=== PATIENT | female | born 1950 | race Caucasian/White ===

== ENCOUNTER 2017-02-22 21:42 | Emergency (ER) | payer MEDICARE, OTHER ==
[~2017-02-22] VITALS: Ht 160 cm; Wt 85.5 kg
[~2017-02-22 21:42] MED LIST: ASPI-664 PO; BACTDS PO; CEPH-443 PO; DOCU-144 PO; HYDR-3498 PO; IBUP-1542 PO; LOSA50TA6 PO; NIFE90TA PO; NIT3 SL; PANT40TA3 PO
[2017-02-22 22:26] VITALS: Ht 160 cm; Wt 85.5 kg
[2017-02-22] MEDS ORDERED: ONDANSETRON (ODT) 4 MG TAB ODT STA (23:18)
[2017-02-22] MEDS ORDERED: HYDROCODONE/APAP (5/325) TAB PO ONE (23:30)
--- NOTE | 2017-02-22 23:50 | ERD ---
ER Documentation Chief Complaint Date/Time DATE: 02/22/17 TIME: 23:46 Chief Complaint s/p fall, c/o left ankle, right knee, left wrist, and headache HPI This is a 66-year-old female who presents the emergency department today with her [id number] with complaints of pain after slipping and falling at a restaurant. Patient states there was a slippery spot on the floor and she slipped and fell and hurt her ankle, knee, wrist, back. States she also has a headache and is nauseated. States that she did hit her head however she is unsure if she lost consciousness. States she is able to walk with pain. Denies any vomiting. ROS All systems reviewed and are negative except as per history of present illness. Medications Home Meds Active Scripts Naproxen* (Naprosyn*) 500 Mg Tablet, 500 MG PO BID Y for PAIN AND/OR INFLAMMATION, #30 TAB Prov:HOLLY JEWELL PA-C 02/23/17 Ondansetron Hcl* (Zofran*) 4 Mg Tablet, 4 MG PO Q6H for NAUSEA AND/OR VOMITING, #30 TAB Prov:HOLLY JEWELL PA-C 02/23/17 Hydrocodone/Acetaminophen (Alborn 5-325 Tablet) 1 Each Tablet, 1 TAB PO Q6H Y for PAIN, #12 TAB Prov:HOLLY JEWELL PA-C 02/23/17 Hydrocodone Bit-Acetaminophen* (Alborn*) 5-325 Mg Tab, 1 TAB PO Q6 Y for PAIN, # 20 TAB Prov:ALYSSIA HERNANDEZ PA-C 09/15/15 Cephalexin* (Keflex*) 500 Mg Capsule, 500 MG PO QID for 7 Days, CAP Prov:ALYSSIA HERNANDEZ PA-C 09/15/15 Sulfamethoxazole-Trimethoprim* (Bactrim* DS) 800-160 Mg Tab, 1 TAB PO DAILY for 7 Days, TAB Prov:ALYSSIA HERNANDEZ PA-C 09/15/15 Docusate Sodium* (Colace*) 100 Mg Capsule, 100 MG PO BID, #30 Prov:NOLVIA MORALES MD 03/30/15 Hydrocodone Bit-Acetaminophen* (Alborn*) 5-325 Mg Tab, 1 TAB PO Q6 Y for PAIN, # 16 TAB Prov:NOLVIA MORALES MD 03/30/15 Ibuprofen* (Motrin*) 600 Mg Tab, 600 MG PO Q6, #30 TAB Prov:NOLVIA MORALES MD 03/30/15 Pantoprazole* (Protonix*) 40 Mg Tablet., 40 MG PO DAILY for 30 Days, TAB Prov:ARABELLA SUGGS. 12/21/14 Aspirin* (Aspirin* EC) 81 Mg Tablet., 81 MG PO DAILY for 30 Days, TAB Prov:KASEY SUGGSNata M. 12/21/14 Reported Medications Losartan Potassium* (Losartan Potassium*) 50 Mg Tablet, 50 MG PO BID, TAB 12/21/14 Nifedipine* (Procardia XL*) 90 Mg/Bottle Tab.osm.24, 90 MG PO DAILY, TAB.SA 12/21/14 Nitroglycerin* (Nitroglycerin* SL) 0.3 Mg Tab.subl, 0.3 MG SL Q5MIN Y for CHEST PAIN, BOTTLE 12/21/14 Allergies Allergies: Coded Allergies: No Known Allergy (Verified , 03/30/15) PMhx/Soc History of Surgery: No Anesthesia Reaction: No Hx Neurological Disorder: No Hx Respiratory Disorders: No Hx Cardiac Disorders: Yes (HTN) Hx Psychiatric Problems: No Hx Miscellaneous Medical Probl: Yes (HLD) Hx Alcohol Use: No Hx Substance Use: No Hx Tobacco Use: No Smoking Status: Never smoker Physical Exam Vitals Vital Signs Date Time Temp Pulse Resp B/P Pulse Ox O2 Delivery O2 Flow Rate FiO2 02/22/17 22:26 98.1 75 20 163/99 98 Physical Exam Const: No acute distress Head: Atraumatic Eyes: Normal Conjunctiva. PERRLA. EOM intact ENT: Normal External Ears, Nose and Mouth. No epistaxis. No hemotympanum Neck: Full range of motion..~ No meningismus. Nontender to palpation Resp: Clear to auscultation bilaterally Cardio: Regular rate and rhythm, no murmurs Abd: Soft, non tender, non distended. Normal bowel sounds Skin: No petechiae or rashes Back: Lumbar spine midline tenderness and right-sided paraspinal tenderness. Ext: Left ankle, left wrist, right knee with no obvious deformity. Small amount of ecchymosis right knee. Pain with full active range of motion of knee and ankle and wrist. Pulses 2+. Distal neurovascularly intact. Neur: Awake and alert. No focal neurologic deficits. Psych: Normal Mood and Affect Results 24 hrs Current Medications Medications (Trade) Dose Ordered Sig/Kaia Route PRN Reason Start Time Stop Time Status Last Admin Dose Admin Ondansetron HCl (Zofran Odt) 4 mg ONCE STAT ODT 02/22/17 23:18 02/22/17 23:19 DC 02/23/17 00:01 Acetaminophen/ Hydrocodone Bitart (Alborn (5/325)) 1 tab ONCE ONCE PO 02/22/17 23:30 02/22/17 23:31 DC 02/23/17 00:01 DIAGNOSTIC IMAGING REPORT Patient: LILO EID : 1950 Age: 66 Sex: F MR #: [id number] DOS: 02/22/17 0000 Ordering MD: HOLLY JEWELL PA-C Location: [facility] Room/Bed: PROCEDURE: XR left ankle. CLINICAL INDICATION: Post traumatic medial left ankle pain TECHNIQUE: AP , oblique and lateral views of theleft ankle were performed. COMPARISON: None. FINDINGS: There is normal mineralization and alignment. No fracture or osseous lesion is identified. The ankle mortis and talar dome are intact. The soft tissues are unremarkable. There is no evidence for a radiopaque foreign body. RPTAT:HJJR IMPRESSION: Unremarkable left ankle series. Physician Laurie Date Time Electronically viewed and signed by Physician Laurie on 02/23/2017 00:01 JR/ CC: HOLLY JEWELL PA-C DIAGNOSTIC IMAGING REPORT Patient: LILO EID : 1950 Age: 66 Sex: F MR #: [id number] DOS: 02/22/17 0000 Ordering MD: HOLLY JEWELL PA-C Location: [facility] Room/Bed: PROCEDURE: CT brain without contrast CLINICAL INDICATION: Status post fall with post traumatic headaches TECHNIQUE: A CT of the brain was performed utilizing axial sections from the skull base through the vertex without contrast. Sagittal and coronal images were also reformatted. The exam CTDIvol = 43.77 mGy and DLP = 720.23 mGy-cm. COMPARISON: None available FINDINGS: No acute intracranial hemorrhage is identified. There is no mass effect or midline shift. No extra-axial fluid collection is seen. The ventricles and sulci are within normal limits for size and configuration for the patient's provided age of 66 years. The density of the brain is within normal limits. Renner-white differentiation is preserved. The osseous structures are unremarkable. The mastoid air cells and visualized paranasal sinuses are clear. Severe atherosclerotic calcification of the cavernous internal carotid arteries is present. RPTAT:JONATHANJR IMPRESSION: 1.Unremarkable noncontrast CT of the brain for the patient's age. 2. Severe atherosclerotic calcification of the cavernous internal carotid arteries bilaterally. Physician Laurie Date Time Electronically viewed and signed by Physician Laurie on 02/23/2017 00:02 JR/ CC: HOLLY JEWELL PA-C DIAGNOSTIC IMAGING REPORT Patient: LILO EID : 1950 Age: 66 Sex: F MR #: [id number] DOS: 02/22/17 0000 Ordering MD: HOLLY JEWELL PA-C Location: [facility] Room/Bed: PROCEDURE: XR Knee. CLINICAL INDICATION: Post traumatic right knee pain TECHNIQUE: AP, lateral and tunnel views of the right knee were obtained. COMPARISON: 03/30/2015 FINDINGS: No fracture or osseous lesion is identified. There is no evidence for dislocation. Mineralization is within normal limits. Mild narrowing of the medial joint space is again noted. The remaining joint spaces are preserved. No evidence of effusion or soft tissue swelling is identified. RPTAT:HJJR IMPRESSION: Stable mild narrowing of the medial joint space compared to the prior study without acute post traumatic abnormality of the right knee. Physician Laurie Date Time Electronically viewed and signed by Physician Laurie on 02/23/2017 00:00 JR/ CC: HOLLY JEWELL PA-C DIAGNOSTIC IMAGING REPORT Patient: LILO EID : 1950 Age: 66 Sex: F MR #: [id number] DOS: 02/22/17 0000 Ordering MD: HOLLY JEWELL PA-C Location: [facility] Room/Bed: PROCEDURE: XR Lumbar Spine. CLINICAL INDICATION: Low back pain following a fall. TECHNIQUE: AP, cone-down lateral, and lateral views of the lumbar spine were obtained. COMPARISON: None. FINDINGS: Mineralization is within normal limits. Vertebral bodies are normal in height. No fracture is identified. Trace degenerative anterolisthesis of L3 with the L4 is present. Mild degenerative disk narrowing and L4-5 and L5-S1 is seen. The remaining intervertebral discs are normal in height. Paraspinal contours are unremarkable. Facet arthropathy is present at L4-5, L5-S1 and to a lesser degree L3-4 RPTAT:HJJR IMPRESSION: 1. No evidence of fracture. 2. Facet arthropathy at the lower lumbar levels with mild anterolisthesis at L3 -4. 3. Degenerative disk narrowing at L4-5 and L5-S1. 4. Aortic atherosclerosis is present. Ricardo Talbot Physician Date Time Electronically viewed and signed by Physician Laurie on 02/22/2017 23:59 JR/ CC: HOLLY JEWELL PA-C DIAGNOSTIC IMAGING REPORT Patient: LILO EID : 1950 Age: 66 Sex: F MR #: [id number] [facility] #: [id number] DOS: 02/22/17 0000 Ordering MD: HOLLY JEWELL PA-C Location: [facility] Room/Bed: PROCEDURE: XR Wrist. CLINICAL INDICATION: Post traumatic left wrist pain after a fall TECHNIQUE: PA, lateral and oblique and the scaphoid views of the left wrist were performed. COMPARISON: No prior studies are available for comparison. FINDINGS: No evidence of fracture, dislocation, or subluxation is seen. The bones appear well mineralized. The joint spaces are well preserved. No soft tissue abnormalities are identified and there is no evidence of radiopaque foreign body. RPTAT:HJJR IMPRESSION: Unremarkable exam of the left wrist. Physician Laurie Date Time Electronically viewed and signed by Ricardo Talbot Physician on 02/23/2017 00:00 JR/ CC: HOLLY JEWELL PA-C Procedures/MDM This 66-year-old female who presents to the emergency department today after a mechanical fall while slipping on a wet area at a restaurant. Patient is complaining of a headache and some nausea and she did indicate hitting her head. Patient cannot tell me whether she lost consciousness. Given this in addition to the patient's age I did obtain a head CT scan as well as images of the patient's right knee, left ankle and left wrist and lumbar spine Per the radiology report images of the right knee shows stable mild narrowing of the medial joint space compared to prior study without acute posttraumatic abnormality of right knee. No evidence for fracture dislocation Images of the left ankle are unremarkable. Images of the left wrist are unremarkable Images of the lumbar spine shows no evidence of fracture. There is facet arthropathy at the lower lumbar levels with mild anterolisthesis at L3 and 4. There is degenerative disc narrowing at L4 and 5 and L5 and S1. Head CT noncontrast shows no acute intracranial hemorrhage. There is no mass- effect or midline shift. There is severe atherosclerotic calcification of the cavernous internal carotid arteries bilaterally. Patient symptoms at this time is consistent with sprain versus strain versus contusion and acute head injury secondary to mechanical fall. I do not feel the patient requires cardiogenic workup. Patient did ask me to speak to her daughter on the phone and explained the results to her. I did do this. Patient was given Alborn and Zofran here in the emergency department. She will be given a prescription for Alborn, Zofran and Naprosyn for home. She was given an Jose De Jesus wrap for her left ankle. Patient declined crutches at this time. She was also given a velcro wrist splint At this time the patient is stable for discharge and outpatient management. Patient should follow up with their PCP in the next 1-2 days. They may return to the emergency department sooner for any persistent or worsening of symptoms. Patient and daughter understood and agreed with the plan. Departure Diagnosis: Primary Impression: Fall Encounter type: initial encounter Qualified Code: W19.XXXA - Fall, initial encounter Additional Impression: Acute head injury Encounter type: initial encounter Qualified Code: S09.90XA - Acute head injury, initial encounter Condition: Fair HOLLY JEWELL PA-C February 22, 2017 23:50
--- NOTE | 2017-02-22 23:59 | RADRPT ---
PROCEDURE: XR Lumbar Spine. CLINICAL INDICATION: Low back pain following a fall. TECHNIQUE: AP, cone-down lateral, and lateral views of the lumbar spine were obtained. COMPARISON: None. FINDINGS: Mineralization is within normal limits. Vertebral bodies are normal in height. No fracture is iden tified. Trace degenerative anterolisthesis of L3 with the L4 is present. Mild degenerative disk na rrowing and L4-5 and L5-S1 is seen. The remaining intervertebral discs are normal in height. Shakir dwayne contours are unremarkable. Facet arthropathy is present at L4-5, L5-S1 and to a lesser degree L3-4 RPTAT:HJJR IMPRESSION: 1. No evidence of fracture. 2. Facet arthropathy at the lower lumbar levels with mild anterolisthesis at L3-4. 3. Degenerative disk narrowing at L4-5 and L5-S1. 4. Aortic atherosclerosis is present. Physician Laurie Date Time Electronically viewed and signed by Physician Laurie on 02/22/2017 23:59 /
--- NOTE | 2017-02-23 | RADRPT ---
PROCEDURE: XR Wrist. CLINICAL INDICATION: Post traumatic left wrist pain after a fall TECHNIQUE: PA, lateral and oblique and the scaphoid views of the left wrist were performed. COMPARISON: No prior studies are available for comparison. FINDINGS: No evidence of fracture, dislocation, or subluxation is seen. The bones appear well mineralized. The joint spaces are well preserved. No soft tissue abnormalities are identified and there is no eviden ce of radiopaque foreign body. RPTAT:HJJR IMPRESSION: Unremarkable exam of the left wrist. Physician Laurie Date Time Electronically viewed and signed by Physician Laurie on 02/23/2017 00:00 /
--- NOTE | 2017-02-23 00:01 | RADRPT ---
PROCEDURE: XR left ankle. CLINICAL INDICATION: Post traumatic medial left ankle pain TECHNIQUE: AP , oblique and lateral views of theleft ankle were performed. COMPARISON: None. FINDINGS: There is normal mineralization and alignment. No fracture or osseous lesion is identified. The ankle mortis and talar dome are intact. The soft tissues are unremarkable. There is no evidence for a rad iopaque foreign body. RPTAT:HJJR IMPRESSION: Unremarkable left ankle series. Physician Laurie Date Time Electronically viewed and signed by Physician Laurie on 02/23/2017 00:01 /
--- NOTE | 2017-02-23 00:01 | RADRPT ---
PROCEDURE: XR Knee. CLINICAL INDICATION: Post traumatic right knee pain TECHNIQUE: AP, lateral and tunnel views of the right knee were obtained. COMPARISON: 03/30/2015 FINDINGS: No fracture or osseous lesion is identified. There is no evidence for dislocation. Mineralization is within normal limits. Mild narrowing of the medial joint space is again noted. The remaining amanda int spaces are preserved. No evidence of effusion or soft tissue swelling is identified. RPTAT:HJJR IMPRESSION: Stable mild narrowing of the medial joint space compared to the prior study without acute post traum atic abnormality of the right knee. Physician Laurie Date Time Electronically viewed and signed by Physician Laurie on 02/23/2017 00:00 /
--- NOTE | 2017-02-23 00:03 | RADRPT ---
PROCEDURE: CT brain without contrast CLINICAL INDICATION: Status post fall with post traumatic headaches TECHNIQUE: A CT of the brain was performed utilizing axial sections from the skull base through th e vertex without contrast. Sagittal and coronal images were also reformatted. The exam CTDIvol = 43. 77 mGy and DLP = 720.23 mGy-cm. COMPARISON: None available FINDINGS: No acute intracranial hemorrhage is identified. There is no mass effect or midline shift. No extra -axial fluid collection is seen. The ventricles and sulci are within normal limits for size and con figuration for the patient's provided age of 66 years. The density of the brain is within normal li mits. Renner-white differentiation is preserved. The osseous structures are unremarkable. The mastoid air cells and visualized paranasal sinuses are clear. Severe atherosclerotic calcification of the cavernous internal carotid arteries is present. RPTAT:HJJR IMPRESSION: 1.Unremarkable noncontrast CT of the brain for the patient's age. 2. Severe atherosclerotic calcification of the cavernous internal carotid arteries bilaterally. Physician Laurie Date Time Electronically viewed and signed by Physician Laurie on 02/23/2017 00:02 /
[2017-02-23] MEDS ORDERED: HYDR-906 PO (00:23)
[2017-02-23] MEDS ORDERED: ONDA4TAB8 PO (00:23)
[2017-02-23] MEDS ORDERED: NAPR-260 PO (00:23)
[2017-02-23 01:07] VITALS: BP 143/69; PULSE 65; RESP 16
== END 2017-02-23 01:10 | disposition home or self-care (01) ==
LOC: FTE 21:42
DX: S09.90XA Unspecified injury of head, initial encounter (principal); R11.0 Nausea; I10 Essential (primary) hypertension; R51 Headache; W01.10XA Fall on same level from slipping, tripping and stumbling with subsequent striking against unspecified object, initial encounter; Y92.511 Restaurant or cafe as the place of occurrence of the external cause; Z79.82 Long term (current) use of aspirin
CPT/HCPCS: 70450; 72100; 73562; 73610

== ENCOUNTER 2019-03-23 09:10 | Day surgery (SDC) | payer MEDICARE, OTHER ==
[2019-03-22 18:41] VITALS: BMI 33.4
[~2019-03-23] VITALS: Ht 157.5 cm; Wt 82.0 kg
[2019-03-23] VITALS (16 sets, daily range): BP systolic 96–143; BP diastolic 44–68; PULSE 56–75; RESP 14–24; Ht 157.5 cm; Wt 82.0 kg
[~2019-03-23 09:10] MED LIST changes: -ASPI-664 PO; +ASPI-817 PO; +ATOR-2 PO; -BACTDS PO; -CEPH-443 PO; +CLON0.5T14 PO; +DEXL60CA2 PO; -DOCU-144 PO; -HYDR-3498 PO; -IBUP-1542 PO; -LOSA50TA6 PO; +METO-448 PO; -PANT40TA3 PO; +SOD CHLORIDE 0.45% 1,000 ML IV SCH; +TICA90TA PO
[2019-03-23] MEDS ORDERED: AZIL1TAB2 PO (09:43)
[2019-03-23] MEDS ORDERED: NIFE60TA18 PO (09:44)
[2019-03-23] MEDS ORDERED: ERGO500013 PO (09:44)
[2019-03-23] MEDS ORDERED: MAGN400T27 PO (09:45)
[2019-03-23] MEDS ORDERED: ATOR40TA68 PO (09:45)
--- NOTE | 2019-03-23 10:43 | PREAC ---
Date/Time of Note Date/Time of Note DATE: 03/23/19 TIME: 10:42 Anesthesia Eval and Record Evaluation Time Pre-Procedure Interview DATE: 03/23/19 TIME: 10:42 Age 69 Sex female NPO: 8 hrs Preoperative diagnosis Mitral Valve Insufficiency Planned procedure MARI Past Medical History Past Medical History: Includes Cardio: HTN, Dyslipidemia, Other (MR) Surgery & Anesthesia Issues No known issue Meds Anticoagulation: No Beta Chris within 24 hr: No Reason Beta Chris not given: Pt. not on B-Chris Active Scripts Ticagrelor* (Brilinta*) 90 Mg Tablet, 90 MG PO BID, #60 TAB Prov:VALDEMAR ARROYO GARAGE DOOR TECHNICIAN 09/22/18 Metoprolol Tartrate* (Lopressor*) 25 Mg Tab, 12.5 MG PO BID, #30 TAB Prov:VALDEMAR ARROYO GARAGE DOOR TECHNICIAN 09/22/18 Aspirin* (Aspirin* EC) 81 Mg Tablet., 81 MG PO DAILY for 30 Days, TAB Prov:ARABELLA SUGGS 12/21/14 Reported Medications Magnesium Oxide* (Mag-Oxide*) 400 Mg Tablet, 400 MG PO DAILY, TAB 03/23/19 Atorvastatin* (Atorvastatin*) 40 Mg Tablet, 40 MG PO QHS, #30 TAB 03/23/19 Ergocalciferol (Vitamin D2) (VITAMIN D2) 50,000 Unit Capsule, 62682 UNIT PO WEEKLY for ON SATURDAYS, CAP 03/23/19 Nifedipine* (Nifediac CC*) 60 Mg Tablet.sa, 60 MG PO DAILY, TAB.SA 03/23/19 Azilsartan-Chlorthalidone (Edarbyclor) 40-25 Mg Tablet, 1 TAB PO DAILY, TAB 03/23/19 Clonazepam* (Clonazepam*) 0.5 Mg Tablet, 0.5 MG PO Q8H for ANXIETY, TAB 09/14/18 Dexlansoprazole (Dexilant) 60 Mg Mario., 60 MG PO DAILY, #30 CAP 09/14/18 Discontinued Reported Medications Nifedipine* (Procardia XL*) 90 Mg/Bottle Tab.osm.24, 90 MG PO DAILY, TAB.SA 12/21/14 Nitroglycerin* (Nitroglycerin* SL) 0.3 Mg Tab.subl, 0.3 MG SL Q5MIN PRN for CHEST PAIN, BOTTLE 12/21/14 Discontinued Scripts Atorvastatin* (Atorvastatin*) 80 Mg Tablet, 80 MG PO DAILY@21, #30 TAB Prov:VALDEMAR ARROYO GARAGE DOOR TECHNICIAN 09/22/18 Current Medications Sodium Chloride 1,000 ml @ 20 mls/hr Q24H IV ; Start 03/22/19 at 11:00 Meds reviewed: Yes Allergies Coded Allergies: No Known Allergy (Unverified , 09/14/18) Allergies Reviewed: Yes Labs/Studies Labs Reviewed: Reviewed by anesthesiologist Result Diagram: 03/23/1930 Laboratory Tests 03/23/19 09:30 test: N/A Studies: ECG (n/a), CXR (n/a) Pre-procedure Exam Last vitals Vital Signs Date Temp Pulse Resp B/P (MAP) Pulse Ox O2 O2 Flow FiO2 Time Delivery Rate 03/23/19 98.0 66 16 142/67 96 Room Air 09:53 (92) Airway: Adequate mouth opening, Adequate thyromental dist Mallampati: Mallampati II Teeth: Normal Lung: Normal Heart: Normal ASA Physical Status ASA physical status: 2 Emergency: None Planned Anesthetic General/MAC: MAC Planned Pain Management Parenteral pain med Pre-operative Attestations Prior to commencing anesthesia and surgery, the patient was re-evaluated, there was verification of: *The patient's identity *The results of appropriate recent lab work and preoperative vital signs *The above evaluation not changing prior to induction *Anesthetic plan, risk benefits, alternative and complications discussed with patient/family; questions answered; patient/family understands, accepts and wishes to proceed. RON CHAN MD Mar 23, 2019 10:43
[2019-03-23] MEDS ORDERED: PHENYLephrine (100 MCG/ML) 10ML SYG ONE (10:46)
[2019-03-23] MEDS ORDERED: PROPOFOL 40 ML ONE (10:47)
[2019-03-23] MEDS ORDERED: MIDAZOLAM 1 MG/ML 2 ML INJ ONE (10:47)
[2019-03-23] MEDS ORDERED: EPHEDrine 25 MG/5 ML SYG IV PRN (11:00)
[2019-03-23] MEDS ORDERED: HYDROmorphONE 1 MG/5 ML IV SYRINGE IV PRN (11:00)
[2019-03-23] MEDS ORDERED: LABETALOL HCL 20MG INJ IV PRN (11:00)
[2019-03-23] MEDS ORDERED: hydrALAzine 20 MG INJ IV PRN (11:00)
[2019-03-23] MEDS ORDERED: FENTAnyl 50 MCG/ML VIAL IV PRN (11:00)
[2019-03-23] MEDS ORDERED: ONDANSETRON 4 MG INJ IV PRN (11:00)
--- NOTE | 2019-03-23 11:24 | SIPON ---
Date/Time of Note Date/Time of Note DATE: 03/23/19 TIME: 11:23 Operative Report Preoperative Diagnosis 1.Mitral regurgitation Postoperative Diagnosis 1.Mitral regurgitation Operation/Procedure Performed 1.MARI Surgeon see signature line preschool assistant 1Shawn Anesthesia: MAC Estimated blood loss: minimal Transfusion Required none Specimen none Grafts/Implants none Complications none CHHAYA NARVAEZ Mar 23, 2019 11:24
--- NOTE | 2019-03-23 11:25 | PAC ---
Date/Time of Note Date/Time of Note DATE: 03/23/19 TIME: 11:25 Post-Anesthesia Notes Post-Anesthesia Note Last documented vital signs Vital Signs Date Temp Pulse Resp B/P (MAP) Pulse Ox O2 O2 Flow FiO2 Time Delivery Rate 03/23/19 98.0 66 16 142/67 96 Room Air 11:33 (92) Activity: WNL Respiratory function: WNL Cardiovascular function: WNL Mental status: Baseline Pain reasonably controlled: Yes Hydration appropriate: Yes Nausea/Vomiting absent: Yes RON CHAN MD Mar 23, 2019 11:25
--- NOTE | 2019-03-23 12:30 | RADRPT ---
Vent Rate: 61 bpm RR Interval: 976 msec NV Interval: 155 msec QRS Duration: 85 msec QT Interval: 417 msec QTC Interval: 422 msec P-R-T [place]: 43 - 16 - 90 degrees Sinus rhythm...normal P axis, V-rate 50- 99 Electronically Signed By: Blayne Spence
--- NOTE | 2019-03-23 14:16 | CARRPT ---
DATE OF PROCEDURE: 03/23/2019 TYPE OF PROCEDURE: Transesophageal echo. TYPE OF ANESTHESIA: MAC anesthesia under direction of anesthesiologist at bedside. INDICATION: Assess the degree of mitral regurgitation, assess mechanism. BRIEF HISTORY: Ms. Dorantes is a 69-year-old female with history of hypertension and dyslipidemia, w ho has shortness of breath, found to have mitral regurgitation and had previously undergone a transth oracic echo revealing mild mitral regurgitation and underwent a repeat transesophageal echo some dio hs later revealing increased degree of mitral regurgitation and subsequently prior to possible repair , a transesophageal echo has been requested to further assess possible mechanism and further assess d egree of mitral regurgitation. PROCEDURE IN DETAILS: After informed consent was obtained, the patient was brought to the [facility] cardiac catheterization lab holding room where she was connected to continuous tel emetry monitoring, blood pressure cuff cycling every 3 to 5 minutes and continuous O2 saturation mamie toring. The patient had a bite block placed in her mouth and under direction of anesthesiologist at bedside was given propofol MAC anesthesia in order to achieve adequate local anesthesia. The patient 's esophagus was intubated with a transesophageal echo probe and using multiplanar imaging and color flow Doppler interrogation, the patient's mitral valve was adequately interrogated as well as the rem ainder of the patient's intracardiac structures and the patient's proximal descending, transverse and ascending aorta and echo probe was removed. The patient was allowed to awake from her anesthetized state. This completed the procedure. There were no noted complications. FINDINGS: 1. No definite findings of left atrial appendage or left atrial thrombus or spontaneous contrast. L eft atrial appendage velocity greater than 50 cm per second. 2. In color flow Doppler interrogation of the septum and agitated saline injection, the patient was not found to have a patent foramen ovale or other interatrial septal defect. 3. The patient has grossly normal left ventricular size and left ventricular systolic function. 4. The patient's mitral valve revealed the patient to have a moderate to severe eccentric mitral reg urgitation with very mild possible prolapse of the patient's anterior mitral valve leaflet. The tone ent's valve did not show any findings of flail leaflet or any other alterations in the patient's juana llary muscles or chordae tendineae. 5. The patient had normal-appearing aortic valve with trace aortic regurgitation. 6. The patient has poorly visualized pulmonic valve apparatus, no pulmonic regurgitation. 7. The patient had normal-appearing tricuspid valve apparatus with trace to mild tricuspid regurgita tion. 8. The patient had very minimal atherosclerotic plaquing of the proximal descending, transverse and ascending aorta. IMPRESSION: Moderate to severe mitral regurgitation due to poor coaptation of the valve leaflets wit h very mild possible prolapse of the patient's anterior mitral leaflet. RECOMMENDATIONS: The patient should be considered for possible mitral valve repair and could be eval uated as an outpatient for possible percutaneous mitral valve repair versus open procedure. Dictated By: CHHAYA JORDAN/ROSEANN Conf#: [id number] DID#: [id number]
== END 2019-03-23 14:40 | disposition home or self-care (01) ==
LOC: SDS 09:10 → CCL 09:10
PROVIDERS: ATTEND Internal Medicine
DX: I34.0 Nonrheumatic mitral (valve) insufficiency (principal)
CPT/HCPCS: 71045; 80048; 85025; 85610; 85730; 93005; 93312; 93320; 93325; J2250; J2370